=== PATIENT | female | born 1980 | race Caucasian/White ===

== ENCOUNTER 2016-12-27 10:56 | Emergency (ER) | payer MEDICAID ==
[2016-12-27 11:03] VITALS: TEMP 98.2
[2016-12-27] MEDS ORDERED: fentaNYL 100 MCG/2 ML INJ IVP ONE (11:20)
[2016-12-27] MEDS ORDERED: ONDANSETRON 4 MG/2 ML VIAL IVP ONE (11:20)
--- NOTE | 2016-12-27 11:26 | EDPHY ---
H & P Time Seen by Provider: 12/27/16 11:07 HPI/ROS: CHIEF COMPLAINT: Abdominal pain HISTORY OF PRESENT ILLNESS: 36-year-old female presents to the emergency department with severe right-sided abdominal pain. The patient states that she has had some mild diffuse abdominal pain over last few weeks intermittently and then yesterday had more worsening pain when she was at work and now it feels more localized on the right side. She does have still some mild left lower quadrant abdominal pain as well. She feels nauseous but no vomiting. No diarrhea. She has had normal bowel movements. Her last menstrual period began 8 days ago. She does not think that she is . She does note that her cycle 1 week ago was very light just some mild spotting. She is 5 para 5 AB 0. No fevers or chills. No chest pain or difficulty breathing. She has had kidney stones and states this feels much different. She has no history of ectopic . REVIEW OF SYSTEMS: Constitutional: No fever, no chills. Eyes: No double or blurry vision. ENT: No sore throat. Respiratory: No cough, no shortness of breath. Cardiac: No chest pain. Gastrointestinal: Abdominal pain as above. Nausea. No vomiting or diarrhea Genitourinary: No dysuria. Musculoskeletal: No neck or back pain. Skin: No rashes. Neurological: No headache. Past Medical/Surgical History: 5 para 5 AB 0 Social History: Single and lives in [place] Smoking Status: Current every day smoker Physical Exam: General Appearance: Alert, no distress. Afebrile. Anxious. Eyes: Pupils equal and round. Extraocular motions are all intact. ENT: Mouth: Mucous membranes moist. Respiratory: No wheezing, rhonchi, or rales, lungs are clear to auscultation. Cardiovascular: Regular rate and rhythm. Gastrointestinal: Abdomen is soft. She has tenderness with palpation in the left and the right lower quadrant. Patient is voluntarily guarding. Positive rebound tenderness. She has positive CVA tenderness on the right, none on the left. Neurological: Alert and oriented x 3, cranial nerves II through XII grossly intact Skin: Warm and dry, no rashes. Musculoskeletal: Nontender to palpate along the cervical, thoracic or lumbar spine. Neck is supple. Extremities: Full range of motion and no peripheral edema. Psychiatric: Patient is oriented X 3, there is no agitation. Constitutional: Initial Vital Signs Temperature (C) 36.8 C 12/27/16 10:58 Heart Rate 106 H 12/27/16 10:58 Respiratory Rate 20 12/27/16 10:58 Blood Pressure 92/76 L 12/27/16 10:58 O2 Sat (%) 96 12/27/16 10:58 O2 Delivery Mode Room Air Allergies/Adverse Reactions: No Known Allergies Allergy (Unverified 12/27/16 11:35) Home Medications: Medication Instructions Recorded Cephalexin [Keflex] 500 mg PO QID #40 cap 12/27/16 Medical Decision Making - Diagnostics Imaging Results: Imaging Impressions Abdomen Ultrasound 12/27/16 11:20 Impression: 1. Nonvisualization appendix. Results called to Bella Mccarthy PA-C at 12:54 PM. Pelvic/Renal Ultrasound 12/27/16 11:20 Impression: Bilateral ovarian follicle cysts, with tubular structure between the uterus and left ovary which may represent hydrosalpinx or a bowel loop. Results called to Bella Mccarthy PA-C, at 12:[address] 12/27/16 12:54 Impression: 1. No CT evidence of acute appendicitis. 2. Cystic change in ovaries bilaterally, with minimal cul-de-sac fluid. Results called to Bella Mccarthy PA-C, at 2:10 PM. Imaging: Discussed imaging studies w/ call manager Radiologist ED Course/Re-evaluation: 36-year-old female presents to the emergency department with right-sided abdominal pain that began few days ago. She states that she has had some mild pain intermittently over last few weeks. An IV was established patient had elevated white blood cell count of over 25,000. Her chemistries were unremarkable. After a great amount of time, the patient was able to produce a urine specimen which revealed a large amount of white cells, red blood cells and bacteria. Urine culture is pending. Pelvic ultrasound and abdominal ultrasound were obtained revealed left hydrosalpinx without evidence of free fluid. Unable to visualize appendix. CT imaging of the abdomen and pelvis revealed no evidence of acute appendicitis. Her appendix was retrocecal, visualized and normal. Patient was initially given IV fentanyl for pain. She was also given 1 g of ceftriaxone IV. I offered admission to the hospital, however the patient declined. I feel that she has capacity to make this decision. She was feeling much more comfortable. She was tolerating p. o. fluids. She will be discharged with oral Keflex four times daily for 10 days. She was instructed to call for her urine culture results in 2 days. She was also instructed to return to the emergency department if she developed fever, vomiting, worsening abdominal or flank pain, or if she felt worse in any way. Patient was comfortable with this plan. Differential Diagnosis: Including but not limited to acute appendicitis, ovarian cyst, ovarian torsion, urinary tract infection, pyelonephritis, kidney stones - Data Points Laboratory Results: Laboratory Results 12/27/16 11:16 12/27/16 11:16 12/27/16 12/27/16 12/27/16 11:20 11:16 11:16 WBC RBC Hgb Hct MCV MCH MCHC RDW Plt Count MPV Neut % (Auto) Lymph % (Auto) O'Brien % (Auto) Eos % (Auto) Baso % (Auto) Nucleat RBC Rel Count Absolute Neuts (auto) Absolute Lymphs (auto) Absolute Monos (auto) Absolute Eos (auto) Absolute Basos (auto) Absolute Nucleated RBC Immature Gran % Immature Gran # Sodium 141 mEq/L mEq/L (134-144) Potassium 3.4 mEq/L L mEq/L (3.5-5.2) Chloride 108 mEq/L mEq/L (97-110) Carbon Dioxide 21 mEq/l L mEq/l (22-31) Anion Gap 12 mEq/L mEq/L (8-16) BUN 8 mg/dL mg/dL (7-23) Creatinine 0.7 mg/dL mg/dL (0.6-1.0) Estimated GFR > 60 Glucose 89 mg/dL mg/dL (70-100) Calcium 9.4 mg/dL mg/dL (8.5-10.4) Beta HCG, Qual NEGATIVE Urine Color EVELYN Urine Appearance MODERATELY TURBID Urine pH 5.0 (5.0-7.5) Ur Specific [place] 1.018 (1.002-1.030) Urine Protein 1+ H (NEGATIVE) Urine Ketones NEGATIVE (NEGATIVE) Urine Blood 1+ H (NEGATIVE) Urine Nitrate NEGATIVE (NEGATIVE) Urine Bilirubin NEGATIVE (NEGATIVE) Urine Urobilinogen NEGATIVE EU EU (0.2-1.0) Ur Leukocyte Esterase 3+ H (NEGATIVE) Urine RBC 25-50 /hpf H /hpf (0-3) Urine WBC 50-182 /hpf H /hpf (0-3) Ur Epithelial Cells 2+ /lpf H /lpf (NONE-1+) Urine Bacteria 1+ /hpf H /hpf (NONE SEEN) Urine Mucus 1+ /lpf /lpf (NONE-1+) Urine Glucose NEGATIVE (NEGATIVE) 12/27/16 11:16 WBC 25.91 10^3/uL H 10^3/uL (3.80-9.50) RBC 4.67 10^6/uL 10^6/uL (4.18-5.33) Hgb 14.3 g/dL g/dL (12.6-16.3) Hct 42.0 % % (38.0-47.0) MCV 89.9 fL fL (81.5-99.8) MCH 30.6 pg pg (27.9-34.1) MCHC 34.0 g/dL g/dL (32.4-36.7) RDW 14.0 % % (11.5-15.2) Plt Count 257 10^3/uL 10^3/uL (150-400) MPV 10.0 fL fL (8.7-11.7) Neut % (Auto) 89.0 % H % (39.3-74.2) Lymph % (Auto) 6.0 % L % (15.0-45.0) O'Brien % (Auto) 4.1 % L % (4.5-13.0) Eos % (Auto) 0.1 % L % (0.6-7.6) Baso % (Auto) 0.2 % L % (0.3-1.7) Nucleat RBC Rel Count 0.0 % % (0.0-0.2) Absolute Neuts (auto) 23.05 10^3/uL H 10^3/uL (1.70-6.50) Absolute Lymphs (auto) 1.56 10^3/uL 10^3/uL (1.00-3.00) Absolute Monos (auto) 1.06 10^3/uL H 10^3/uL (0.30-0.80) Absolute Eos (auto) 0.03 10^3/uL 10^3/uL (0.03-0.40) Absolute Basos (auto) 0.05 10^3/uL 10^3/uL (0.02-0.10) Absolute Nucleated RBC 0.00 10^3/uL 10^3/uL (0-0.01) Immature Gran % 0.6 % % (0.0-1.1) Immature Gran # 0.16 10^3/uL H 10^3/uL (0.00-0.10) Sodium Potassium Chloride Carbon Dioxide Anion Gap BUN Creatinine Estimated GFR Glucose Calcium Beta HCG, Qual Urine Color Urine Appearance Urine pH Ur Specific [place] Urine Protein Urine Ketones Urine Blood Urine Nitrate Urine Bilirubin Urine Urobilinogen Ur Leukocyte Esterase Urine RBC Urine WBC Ur Epithelial Cells Urine Bacteria Urine Mucus Urine Glucose Medications Given: Discontinued Medications Fentanyl (Sublimaze) 50 mcg IVP EDNOW ONE Stop: 12/27/16 11:21 Last Admin: 12/27/16 11:45 Dose: 50 mcg Hydromorphone HCl (Dilaudid) 0.5 mg IVP EDNOW ONE Stop: 12/27/16 13:36 Last Admin: 12/27/16 13:56 Dose: 0.5 mg Ceftriaxone Sodium/Dextrose (Rocephin 1 Gm (Premix)) 50 mls @ 100 mls/hr IV EDNOW ONE PRN Reason: Protocol Stop: 12/27/16 14:45 Last Admin: 12/27/16 14:53 Dose: 50 mls Ondansetron HCl (Zofran) 4 mg IVP EDNOW ONE Stop: 12/27/16 11:21 Last Admin: 12/27/16 11:45 Dose: 4 mg Departure - Departure Disposition: Home, Routine, Self-Care Clinical Impression: Acute pyelonephritis Condition: Good Instructions: Kidney Infection (ED) Additional Instructions: Call [phone] for the results of your urine culture in 48 hours. Keflex 500 mg 4 times daily for 10 days. Return to the emergency department if he developed fever, vomiting, worsening pain, or if you feel worse in any way. Referrals: Arsh Woodard MD [Medical Doctor] - 1-2 days without fail (Primary care provider ground control approach technician) Prescriptions: Cephalexin [Keflex] 500 mg PO QID #40 cap
[2016-12-27 11:27] LABS: % IMMATURE GRANULYOCYTES 0.6 % (0.0-1.1); ABSOLUTE IMMATURE GRANULOCYTES 0.16 10^3/uL (0.00-0.10); ADD DIFF? NO; ADD MORPH? NO; ADD SCAN? NO; ATYPICAL LYMPHOCYTE FLAG 0 (0-99); FRAGMENT RBC FLAG 0 (0-99); HEMOGLOBIN 14.3 g/dL (12.6-16.3); LEFT SHIFT FLG 10 (0-99); LIPEMIA HEMOLYSIS FLAG 90 (0-99); MEAN CELL HEMOGLOBIN 30.6 pg (27.9-34.1); MEAN CELL VOLUME 89.9 fL (81.5-99.8); PLATELET CLUMPS FLAG 0 (0-99); PLATELET COUNT 257 10^3/uL (150-400); RED BLOOD CELL COUNT 4.67 10^6/uL (4.18-5.33)
[2016-12-27 11:36] LABS: COLOR AMBER; LEUKOCYTE ESTERASE,URINE 3+ (NEGATIVE); NITRITE,URINE NEGATIVE (NEGATIVE)
[2016-12-27 11:40] LABS: ANION GAP 12 mEq/L (8-16); CALCIUM 9.4 mg/dL (8.5-10.4); CARBON DIOXIDE 21 mEq/l (22-31); CHLORIDE 108 mEq/L (97-110); CREATININE 0.7 mg/dL (0.6-1.0); GLOMERULAR FILTRATION RATE > 60; GLUCOSE 89 mg/dL (70-100); POTASSIUM 3.4 mEq/L (3.5-5.2); SODIUM 141 mEq/L (134-144)
[2016-12-27 11:40] LABS: BACTERIA 1+ /hpf (NONE SEEN); MUCUS 1+ /lpf (NONE-1+); RBC,URINE 25-50 /hpf (0-3); WBC,URINE 50-182 /hpf (0-3)
[2016-12-27] MEDS ORDERED: IOPAMIDOL (ISOVUE-300) 100 ML BTL ONE (13:08)
[2016-12-27 13:11] VITALS: RESP 16; O2SAT 97
[2016-12-27] MEDS ORDERED: HYDROmorphONE/DILAUDID 1 MG/ML SYR IVP ONE (13:35)
[2016-12-27 16:00] VITALS: BP 109/77; PULSE 67
== END 2016-12-27 15:59 | disposition home or self-care (01) ==
DX: N10 Acute pyelonephritis (principal); B96.89 Other specified bacterial agents as the cause of diseases classified elsewhere; F17.200 Nicotine dependence, unspecified, uncomplicated
CPT/HCPCS: 96365; J0696; J1170; J2405; J3010; Q9967